=== PATIENT | female | born 1975 | race Caucasian/White ===

== ENCOUNTER 2018-01-01 06:49 | Inpatient (IN) | payer MEDICAID, SELFPAY ==
[2016-10-17 13:03] VITALS: BMI 18.0
[2018-01-01] MEDS ORDERED: ceFAZolin 1 gm in NS 1 GM/100 ML BAG IVPB ONE (07:27)
[2018-01-01] MEDS: Bacitracin Ointment 30 GM TUBE ONE ×2 (08:02→08:51)
[2018-01-01] MEDS: Bupivacaine-Epi 0.5%-1:200,000 PF Inj IJ ONE ×2 (08:03→08:38)
[2018-01-01] MEDS: Vasopressin 20 Units/ml Inj ONE ×2 (08:03→08:48)
[2018-01-01] MEDS ORDERED: Midazolam 2 MG/2 ML VIAL ONE (08:25)
[2018-01-01] MEDS ORDERED: Propofol 10 mg/ml Inj (20 ML) ONE (08:25)
[2018-01-01] MEDS ORDERED: Morphine Monoject Barrel PCA 1mg/ml IV PRN (09:07)
[2018-01-01] MEDS ORDERED: Neostigmine Methylsulfate 3mg/3ml Syringe IV ONE (09:28)
[2018-01-01] MEDS: HYDROmorphone 0.5 mg/0.5 ml ISec IVP PRN ×2 (10:17→10:23)
[2018-01-01] MEDS ORDERED: HYDROmorphone 0.5 mg/0.5 ml ISec IVP PRN (12:49)
[2018-01-01] MEDS: Lactated Ringer's 1,000 ML IV SCH (16:00)
[2018-01-01 16:42] VITALS: RESP 20
[2018-01-01] MEDS: Simethicone 80 mg Chewtab PO SCH ×2 (17:39→21:50)
[2018-01-01] MEDS: cefOXitin IV 1 gm in Dextrose 1 GM/50 ML BAG IVPB SCH (17:55)
[2018-01-02] MEDS: Lactated Ringer's 1,000 ML IV SCH ×4 (01:15→16:50)
[2018-01-02] MEDS: cefOXitin IV 1 gm in Dextrose 1 GM/50 ML BAG IVPB SCH (01:19)
--- NOTE | 2018-01-02 06:51 | CP.PCM.PN ---
Subjective - Date & Time of Evaluation Date of Evaluation: 01/02/18 Time of Evaluation: 07:00 - Subjective Subjective: pt was seen at bd side, painunder control, no n/v, tolerating liquid deit, waiting to void,no bleeding .feels ok abd dressing clean and dry Objective - Vital Signs/Intake and Output Vital Signs (last 24 hours): Temp Pulse Resp BP Pulse Ox 98.6 F 100 H 20 107/75 100 01/02/18 00:00 01/02/18 00:00 01/02/18 00:00 01/02/18 00:00 01/02/18 00:00 Intake and Output: 01/01/18 01/02/18 18:59 06:59 Intake Total 2100 800 Output Total 1050 350 Balance 1050 450 - Medications Medications: Current Medications Bisacodyl (Dulcolax) 10 mg PO ONCE ONE Stop: 01/02/18 10:12 Docusate Sodium (Colace) 100 mg PO BID [facility] Last Admin: 01/01/18 17:38 Dose: Not Given Hydromorphone HCl (Dilaudid) 0.5 mg IVP Q5M PRN PRN Reason: Pain, moderate (4-7) Last Admin: 01/01/18 12:53 Dose: 0.5 mg Lactated Ringer's (Lactated Ringer's) 1,000 mls @ 125 mls/hr IV .Q8H [facility] Last Admin: 01/02/18 01:15 Dose: 125 mls/hr Ibuprofen (Motrin Tab) 600 mg PO Q6H PRN PRN Reason: Pain, Mild (1-3) Morphine Sulfate/Sodium Chloride (Morphine Casing Finisher And Stuffer Monoject Barrel) 24 mg IV Q4H PRN; Protocol PRN Reason: Pain, moderate (4-7) Stop: 01/02/18 09:07 Last Admin: 01/01/18 14:30 Dose: 24 mg Oxycodone/Acetaminophen (Percocet 5/325 Mg Tab) 1 tab PO Q4H PRN PRN Reason: Pain, moderate (4-7) Stop: 01/04/18 11:16 Oxycodone/Acetaminophen (Percocet 5/325 Mg Tab) 2 tab PO Q4H PRN PRN Reason: Pain, severe (8-10) Stop: 01/04/18 10:12 Simethicone (Mylicon Chew Tab) 80 mg PO QID SHANTHI Last Admin: 01/01/18 21:50 Dose: 80 mg Assessment and Plan - Assessment and Plan (Free Text) Assessment: 42 yr wih abdominal myomectomy Plan: plan dc whiting can worker pump p [ain meds dc antoine advance to reg deit pain mGGEMENT ENCOURAGE AMBULATION
[2018-01-02 07:04] LABS: HEMOGLOBIN 8.1 g/dL (11.0-16.0); MEAN CELL VOLUME 90.5 fL (81.0-99.0); MEAN CORPUSCULAR HEMOGLOBIN 30.2 pg (27.0-31.0); MEAN CORPUSCULAR HGB CONC 33.4 g/dL (33.0-37.0); MEAN PLATELET VOLUME 10.2 fL (7.2-11.7); RBC 2.68 Mil/uL (3.80-5.20); RED CELL DISTRIBUTION WIDTH 14.4 % (11.5-14.5); WHITE BLOOD COUNT 9.4 K/uL (4.8-10.8)
[2018-01-02] MEDS: Simethicone 80 mg Chewtab PO SCH ×4 (09:20→21:56)
[2018-01-02] MEDS ORDERED: Bisacodyl 5mg EC Tab PO ONE (10:11)
[2018-01-02] MEDS: Oxycodone/Acetaminophen 5/325 mg Tab PO PRN ×2 (12:20→18:02)
[2018-01-03] MEDS: Lactated Ringer's 1,000 ML IV SCH ×4 (01:22→16:20)
[2018-01-03] MEDS: Oxycodone/Acetaminophen 5/325 mg Tab PO PRN ×3 (05:52→17:20)
[2018-01-03] MEDS: Simethicone 80 mg Chewtab PO SCH ×4 (10:02→21:13)
[2018-01-04] MEDS: Oxycodone/Acetaminophen 5/325 mg Tab PO PRN ×2 (08:29→21:31)
[2018-01-04] MEDS: Simethicone 80 mg Chewtab PO SCH ×4 (09:08→21:31)
[2018-01-04] MEDS ORDERED: Oxycodone/Acetaminophen 5/325 mg Tab PO PRN (21:15)
[2018-01-05 08:26] VITALS: BP 125/80; PULSE 99; TEMP 98.4; O2SAT 100
[2018-01-05] MEDS: Simethicone 80 mg Chewtab PO SCH ×2 (10:00→13:56)
[2018-01-05] MEDS: Oxycodone/Acetaminophen 5/325 mg Tab PO PRN (11:03)
--- NOTE | 2018-01-06 19:04 | PCM.SURG1 ---
Surgeon's Initial Post Op Note - Surgeon's Notes Surgeon: dr cotton Help Desk Manager: dr dow Type of Anesthesia: General Endo Anesthesia Administered By: dr salazar Pre-Operative Diagnosis: 42 yr with multiple fibroid Operative Findings: see the op reort Post-Operative Diagnosis: same Operation Performed: abdominal myomectomy Specimen/Specimens Removed: fibroid Estimated Blood Loss: EBL {In ML}: 200 Blood Products Given: N/A Drains Used: No Drains Post-Op Condition: Good Date of Surgery/Procedure: 01/01/18 Time of Surgery/Procedure: 10:00
--- NOTE | 2018-01-06 19:07 | CP.PCM.DIS ---
Provider - Provider Date of Admission: 01/01/18 06:49 Attending physician: Rustam Coello MD Time Spent in preparation of Discharge (in minutes): 20 Diagnosis - Discharge Diagnosis (1) Status post myomectomy Status: Acute Hospital Course - Lab Results Lab Results: Most Recent Lab Values WBC 9.4 K/uL (4.8-10.8) D 01/02/18 06:56 RBC 2.68 Mil/uL (3.80-5.20) L 01/02/18 06:56 Hgb 8.1 g/dL (11.0-16.0) L D 01/02/18 06:56 Hct 24.3 % (34.0-47.0) L 01/02/18 06:56 MCV 90.5 fL (81.0-99.0) 01/02/18 06:56 MCH 30.2 pg (27.0-31.0) 01/02/18 06:56 MCHC 33.4 g/dL (33.0-37.0) 01/02/18 06:56 RDW 14.4 % (11.5-14.5) 01/02/18 06:56 Plt Count 131 K/uL (130-400) 01/02/18 06:56 MPV 10.2 fL (7.2-11.7) 01/02/18 06:56 Blood Type O POSITIVE 01/01/18 08:19 Antibody Screen Negative 01/01/18 08:19 Discharge Exam - Head Exam Head Exam: ATRAUMATIC, NORMAL INSPECTION, NORMOCEPHALIC - Eye Exam Eye Exam: EOMI, Normal appearance, PERRL Pupil Exam: NORMAL ACCOMODATION, PERRL - GI/Abdominal Exam GI & Abdominal Exam: Normal Bowel Sounds - Rectal Exam Rectal Exam: NORMAL INSPECTION - Exam Exam: Circumcision, NORMAL INSPECTION External exam: NORMAL EXTERNAL EXAM Speculum exam: NORMAL SPECULUM EXAM Bimanual exam: NORMAL BIMANUAL EXAM - Neurological Exam Neurological exam: Alert, CN II-XII Intact, Normal Gait, Oriented x3, Reflexes Normal - Psychiatric Exam Psychiatric exam: Normal Affect, Normal Mood - Skin Skin Exam: Dry, Intact, Normal Color, Warm Discharge Plan - Follow Up Plan Condition: GOOD Disposition: HOME/ ROUTINE Instructions: Myomectomy (DC) Additional Instructions: Discharge home on 01/05 in the am. follow up in office x 2 weeks
--- NOTE | 2018-01-07 08:30 | OP ---
PROCEDURE DATE: 01/01/2018 PREOPERATIVE DIAGNOSIS: A 42-year-old 0, para 0 with multiple fibroid uterus. POSTOPERATIVE DIAGNOSIS: A 42-year-old 0, para 0 with multiple fibroid uterus. SURGEON: Rustam Coello MD GROOMING SALON MANAGER: Dr. Bower, who was present throughout the surgery. PROCEDURE PERFORMED: Abdominal myomectomy. COMPLICATIONS: None. ESTIMATED BLOOD LOSS: 200 mL. ANESTHESIA: General anesthesia. ANESTHESIOLOGIST: Dr. Horton. DESCRIPTION OF PROCEDURE: The patient was prepped and draped in the normal sterile fashion. Mon catheter was then inserted under sterile condition. About 2 cm above the pubic bone, an incision was made with a knife, subcutaneous with a Bovie. The fascia was excised on both the sides using curved Crespo scissors. The fascia was from site of umbilicus and then at the rectus muscle. The rectal muscle was . The uterus was exteriorized and found multiple fibroids. There was a big fibroid. Exam under anesthesia, vasopressin was injected, and then an incision was made at the center of the incision. Fibroid was retracted with towel clip. Multiple fibroids were removed this way, and we never entered endometrium. They were all in the intramural part. Eleven fibroids were removed. The incisions were closed using 2-0 Vicryl. It was not hemostatic every place where we removed the fibroids, so a stitch was placed. It was hemostatic. Lot of irrigation was done and found to be hemostatic, no bleeding. After that, FloSeal was placed and then uterus returned back to the abdominal cavity. Gutters were cleared of all clots and debris. After that, peritoneum was closed using 2-0 Vicryl in running interlocking fashion. The muscle was closed using 2-0 Vicryl in running interlocking fashion. Subcutaneous tissue was closed using 0 Vicryl in running interlocking fashion. Skin was closed using magui. The patient tolerated the procedure well. Lap, sponge, and instrument counts were correct x2. Rustam Coello MD
== END 2018-01-05 17:20 | disposition home or self-care (01) | DRG 743 ==
LOC: C.9S 06:49 → EDSTATUS 10:15 → C.3T 16:38
PROVIDERS: ADMIT Obstetrics & Gynecology; ATTEND Obstetrics & Gynecology
PROC: 0UB90ZZ Excision of Uterus, Open Approach (ICD-10-PCS; principal; 2018-01-01 10:15)
DX: D25.9 Leiomyoma of uterus, unspecified (principal); N93.9 Abnormal uterine and vaginal bleeding, unspecified

== ENCOUNTER 2018-04-25 15:21 | Emergency (ER) | payer MEDICAID, OTHER ==
[2018-04-25 15:21] VITALS: BMI 18.0
[2018-04-25 15:33] VITALS: O2SAT 100
[2018-04-25 16:29] LABS: BASO % 0.7 % (0.0-2.0); EOS % 0.4 % (0.0-4.0); LYMPH # 0.9 K/uL (1.0-4.3); LYMPH % 29.3 % (20.0-40.0); MEAN CORPUSCULAR HEMOGLOBIN 28.2 pg (27.0-31.0); MEAN CORPUSCULAR HGB CONC 32.6 g/dL (33.0-37.0); MEAN PLATELET VOLUME 9.9 fL (7.2-11.7); MONO # 0.3 K/uL (0.0-0.8); MONO % 8.4 % (0.0-10.0); NEUT # 1.9 K/uL (1.8-7.0); NEUT % 61.2 % (50.0-75.0); NRBC % 0.1 % (0.0-2.0); RBC 4.45 Mil/uL (3.80-5.20)
[2018-04-25 16:37] LABS: HEMOGLOBIN 12.6 g/dL (11.0-16.0); MEAN CELL VOLUME 86.7 fL (81.0-99.0); WHITE BLOOD COUNT 3.2 K/uL (4.8-10.8)
[2018-04-25 16:39] LABS: VENOUS BLOOD GAS BASE EXCESS -4.1 mmol/L (0.0-2.0); VENOUS BLOOD GAS PCO2 33 mmHg (40-60); VENOUS BLOOD GAS PO2 35 mm/Hg (30-55); VENOUS BLOOD PH 7.39 (7.32-7.43)
--- NOTE | 2018-04-25 16:42 | RAD ---
HISTORY: cp COMPARISON: Chest x-ray performed 11/10/13 TECHNIQUE: Chest PA and lateral FINDINGS: LUNGS: No focal consolidation. Please note that chest x-ray has limited sensitivity for the detection of pulmonary masses. PLEURA: No significant pleural effusion identified. No definite pneumothorax . CARDIOVASCULAR: The cardiomediastinal silhouette appears within normal limits of size. OSSEOUS STRUCTURES: No acute osseous abnormality identified. VISUALIZED UPPER ABDOMEN: Unremarkable. OTHER FINDINGS: None. IMPRESSION: No focal consolidation, significant pleural effusion, or definite pneumothorax identified.
[2018-04-25 16:58] LABS: ALB/GLOB RATIO 1.3 (1.0-2.1); ALBUMIN 3.9 g/dL (3.5-5.0); ALT/SGPT 18 U/L (9-52); AST/SGOT 27 U/L (14-36); BLOOD UREA NITROGEN 11 mg/dL (7-17); CALCIUM 8.8 mg/dl (8.6-10.4); GFR NON-AFRICAN AMERICAN > 60; LIPASE 37 U/L (23-300)
--- NOTE | 2018-04-25 17:04 | C.PDOC ---
History Of Present Illness 42 yr old female w/ hx of fibrod removal, p/w chest pain, suprapubic abdominal pain. She notes chest pain is epigastric, without radiation, without nausea or vomting. First time occurence. No constipation or diarrhea. No vaginal d/c. She notes she has some tenderness around her scar site of her previous fibroidectomy. She denies any discharge from wound, vaginal d/c or any other complaints. No trauma, fever, chills or night sweats. Time Seen by Provider: 04/25/18 15:47 Chief Complaint (Nursing): Chest Pain Past Medical History Vital Signs: Last Vital Signs Temp 98.5 F 04/25/18 21:02 Pulse 64 04/25/18 21:02 Resp 20 04/25/18 21:02 BP 123/81 04/25/18 21:02 Pulse Ox 100 04/25/18 21:02 - Medical History PMH: Anemia (ON IRON SUPPLEMENT), Asthma, Bronchitis (2013) Denies: Chronic Kidney Disease Surgical History: Endoscopy - [facility] Procedures ESOPHAGOGASTRODUODENOSCOPY [EGD] W/CLOSED BIOPSY (12/14/13) EXCISION OF UTERUS, OPEN APPROACH (01/01/18) Family History: States: Unknown Family Hx - Social History Hx Tobacco Use: No Hx Alcohol Use: No Hx Substance Use: No - Immunization History Hx Tetanus Toxoid Vaccination: No Hx Influenza Vaccination: No Hx Pneumococcal Vaccination: No Review Of Systems Constitutional: Negative for: Fever, Chills Eyes: Negative for: Pain ENT: Negative for: Ear Pain Cardiovascular: Positive for: Chest Pain (epigastric). Negative for: Palpitations Respiratory: Negative for: Cough, Shortness of Breath Gastrointestinal: Positive for: Abdominal Pain Genitourinary: Negative for: Dysuria Musculoskeletal: Negative for: Neck Pain Physical Exam - Physical Exam Appears: Well Skin: Normal Color, Warm, Dry Eye(s): bilateral: Normal Inspection, PERRL, EOMI Nose: Normal Throat: Normal Neck: Normal Cardiovascular: Rhythm Regular Respiratory: Normal Breath Sounds Gastrointestinal/Abdominal: Normal Exam (epigastric, suprapubic. No drainage from scar site crepitus or erythema. ) Back: Normal Inspection Extremity: Normal ROM Neurological/Psych: Oriented x3, Normal Speech ED Course And Treatment - Laboratory Results Result Diagrams: 04/25/18 16:26 04/25/18 16:26 O2 Sat by Pulse Oximetry: 100 Medical Decision Making Medical Decision Makin yr old female p/w abdominal pain, chest pain. Low risk CP. No vaginal d/c. Plan for imaging and labs. Heart score: age: 0 RF: 0 Story: 0 EK trop: 0 EKG 73, NSR, No stemi US unremarkable informed pt of hypodensities in lvier and to f/u Disposition - Disposition Referrals: Gianfranco Valerio MD [Medical Doctor] - Sally Nieto MD [Staff Provider] - Disposition: HOME/ ROUTINE Disposition Time: 20:00 Condition: GOOD Instructions: Uterine Fibroids Forms: [employer] ([place]i) - Clinical Impression Clinical Impression: Fibroid
[2018-04-25 17:15] LABS: SQUAMOUS EPITHIAL 2 /hpf (0-5); URINE BACTERIA RARE (<OCC); URINE BILIRUBIN NEGATIVE (NEGATIVE); URINE BLOOD NEGATIVE (NEGATIVE); URINE CLARITY Clear (Clear); URINE COLOR Yellow (YELLOW); URINE GLUCOSE (UA) NORMAL (Normal); URINE LEUKOCYTE ESTERASE NEG Leu/uL (Negative); URINE PROTEIN NEGATIVE (NEGATIVE); URINE UROBILINOGEN NORMAL mg/dL (0.2-1.0)
[2018-04-25] MEDS ORDERED: Iodixanol 320 MG/ML 100 ML BOTTLE IV ONE (17:30)
--- NOTE | 2018-04-25 18:33 | US ---
Date of service: 04/25/2018 HISTORY: s/p fibroidectomy now w/ pain COMPARISON: Transvaginal pelvic ultrasound performed 12/06/17 TECHNIQUE: Real-time transabdominal pelvic ultrasound was performed. In addition a transvaginal pelvic ultrasound was necessary to better depict pelvic anatomy. FINDINGS: UTERUS: Measures 6.9 x 4.7 x 5.3 cm. Retroverted mid uterine fibroid measures approximately 0.7 x 0.6 x 0.6 cm. ENDOMETRIUM: Measures 7 mm in diameter. CERVIX: No cervical abnormality identified. RIGHT OVARY: Measures 3.2 x 2.0 x 2.3 cm. Blood flow is demonstrated. LEFT OVARY: Measures 4.1 x 2.1 x 2.7 cm. Blood flow is demonstrated. 2.1 cm and 1 cm right ovarian follicles/cysts. FREE FLUID: Small fluid noted adjacent to the right ovary. OTHER FINDINGS: None. IMPRESSION: 7 mm mid uterine fibroid. Small left ovarian follicles/cysts as above. Small free fluid adjacent to the right ovary.
[2018-04-25 21:03] VITALS: BP 123/81; PULSE 64; RESP 20; TEMP 98.5
--- NOTE | 2018-04-26 07:04 | CT ---
Date of service: 04/25/2018 PROCEDURE: CT Abdomen and Pelvis with intravenous contrast HISTORY: dell-umbilical pain COMPARISON: None. TECHNIQUE: Multiple contiguous axial images were performed through the abdomen and pelvis with the use of intravenous contrast. Subsequently, sagittal and coronal reformatted images were. Radiation dose: Total exam DLP = 330 mGy-cm. This CT exam was performed using one or more of the following dose reduction techniques: Automated exposure control, adjustment of the mA and/or kV according to patient size, and/or use of iterative reconstruction technique. FINDINGS: LOWER THORAX: Unremarkable. LIVER: Several hepatic hypodensities, most of which are too small to adequately characterize. Within the right hepatic lobe a focal hypodensity measures 1 centimeter demonstrating a Hounsfield unit attenuation of 20, indeterminate. This may be better evaluated with multiphasic CT or MR if clinically indicated. GALLBLADDER AND BILE DUCTS: Unremarkable. PANCREAS: Unremarkable. No gross lesion or ductal dilatation. SPLEEN: Unremarkable. ADRENALS: Unremarkable. No mass. KIDNEYS AND URETERS: Unremarkable. No hydronephrosis. No solid mass. Sub centimeter hypodensity in the midpole of the right kidney, too small to adequately characterize. VASCULATURE: Unremarkable. No aortic aneurysm. BOWEL: Prominent amount of retained gas and stool in the colon. APPENDIX: Unremarkable. Normal appendix. PERITONEUM: Small amount of free fluid in the pelvis. LYMPH NODES: Unremarkable. No enlarged lymph nodes. BLADDER: Possible cystitis with mild wall thickening suggested. REPRODUCTIVE: Heterogeneous uterus, endometrium, and bilateral adnexa. Left adnexal cyst measures up to 2.2 centimeters. BONES: No acute fracture. OTHER FINDINGS: Small fat containing umbilical hernia. IMPRESSION: Small amount of free fluid in the pelvis. 2.2 centimeter left adnexal cyst. Heterogeneous uterus and endometrium. These findings may represent a ruptured and or partially ruptured ovarian cyst. Clinical correlation. Correlation with pelvic ultrasound may be helpful clinically indicated. Mild wall thickening of the urinary bladder concerning for possible cystitis. Clinical correlation. Several hepatic hypodensities, most of which are too small to adequately characterize. Within the right hepatic lobe a focal hypodensity measures 1 centimeter demonstrating a Hounsfield unit attenuation of 20, indeterminate. This may be better evaluated with multiphasic CT or MR if clinically indicated. Additional findings as above. These findings were preliminarily reported at 7:45 p.m. on 04/25/[address] Desirae Chavez from [employer] [facility].
== END 2018-04-25 21:09 | disposition home or self-care (01) ==
LOC: C.ER 15:21
DX: D25.9 Leiomyoma of uterus, unspecified (principal)
CPT/HCPCS: 71046; 74177; 76830; 76856; 80053; 81001; 82803; 83690; 84484; 85025; 99285; Q9967